=== PATIENT | male | born 1970 | race Caucasian/White ===

== ENCOUNTER 2018-10-23 16:10 | Emergency (ER) | payer MEDICAID, OTHER ==
[~2018-10-23] VITALS: Ht 172.7 cm; Wt 70.0 kg
[2018-10-23 16:16] VITALS: Ht 172.7 cm; Wt 70.0 kg
[2018-10-23] MEDS ORDERED: KETOROLAC 15 MG INJ IV STA (19:14)
--- NOTE | 2018-10-23 19:54 | ERD ---
ER Documentation Chief Complaint Chief Complaint URQ AP (worse after eating) X 5 days, dysuria X 2 days, HPI Very pleasant 48-year-old gentleman presents with postprandial right upper quadrant abdominal discomfort for the past 5 days. No fevers chills chest pain or shortness of breath no exertional symptoms no nausea vomiting or diarrhea. Prior colonoscopy 6 years ago was normal. He does have family history of colon cancer and is concerned about this. ROS All systems reviewed and are negative except as per history of present illness. Medications Home Meds Active Scripts Famotidine* (Pepcid*) 20 Mg Tablet, 20 MG PO BID for 14 Days, TAB Prov:SOFIE DOZIER MD 10/23/18 Allergies Allergies: Coded Allergies: No Known Allergy (Unverified , 02/16/13) PMhx/Soc Medical and Surgical Hx: pt denies Medical Hx History of Surgery: Yes (nose) Anesthesia Reaction: No Hx Neurological Disorder: No Hx Respiratory Disorders: No Hx Cardiac Disorders: No Hx Psychiatric Problems: No Hx Miscellaneous Medical Probl: No Hx Alcohol Use: Yes (socially) Hx Tobacco Use: No Smoking Status: Never smoker FmHx Family History: No diabetes Physical Exam Vitals Vital Signs Date Temp Pulse Resp B/P (MAP) Pulse Ox O2 O2 Flow FiO2 Time Delivery Rate 10/23/18 98.7 83 18 146/91 98 16:16 (109) Physical Exam General: Well developed, well nourished, no acute distress Head: Normocephalic, atraumatic. Eyes: Pupils equally reactive, EOM intact ENT: Moist mucous membranes Neck: Supple, no lymphadenopathy Respiratory: Lungs clear bilaterally, no distress Cardiovascular: RRR, no murmurs, rubs, or gallops Abdominal: Soft, very mild discomfort in the right upper quadrant but negative Walters sign, no tenderness to McBurney's point : Deferred MSK: No edema, no unilateral swelling, 5/5 strength Neurologic: Alert and oriented, moving all extremities, normal speech, no focal weakness, no cerebellar signs Skin: No rash Psych: Normal mood Result Diagram: 10/23/18192410/23/181924 Results 24 hrs Laboratory Tests Test 10/23/18 19:25 White Blood Count 6.3 10^3/ul Red Blood Count 5.02 10^6/ul Hemoglobin 14.7 g/dl Hematocrit 43.4 % Mean Corpuscular Volume 86.5 fl Mean Corpuscular Hemoglobin 29.3 pg Mean Corpuscular Hemoglobin Concent 33.9 g/dl Red Cell Distribution Width 12.4 % Platelet Count 211 10^3/UL Mean Platelet Volume 9.7 fl Immature Granulocytes % 0.200 % Neutrophils % 53.6 % Lymphocytes % 31.0 % Monocytes % 10.6 % Eosinophils % 3.5 % Basophils % 1.1 % Nucleated Red Blood Cells % 0.0 /100WBC Immature Granulocytes # 0.010 10^3/ul Neutrophils # 3.4 10^3/ul Lymphocytes # 2.0 10^3/ul Monocytes # 0.7 10^3/ul Eosinophils # 0.2 10^3/ul Basophils # 0.1 10^3/ul Nucleated Red Blood Cells # 0.0 10^3/ul Sodium Level 142 mmol/L Potassium Level 3.9 mmol/L Chloride Level 103 mmol/L Carbon Dioxide Level 27 mmol/L Anion Gap 12 Blood Urea Nitrogen 12 mg/dl Creatinine 0.83 mg/dl Est Glomerular Filtrat Rate mL/min > 60 mL/min Glucose Level 92 mg/dl Calcium Level 9.7 mg/dl Total Bilirubin 0.4 mg/dl Direct Bilirubin 0.00 mg/dl Indirect Bilirubin 0.4 mg/dl Aspartate Amino Transf (AST/SGOT) 29 IU/L Alanine Aminotransferase (ALT/SGPT) 26 IU/L Alkaline Phosphatase 42 IU/L Total Protein 7.9 g/dl Albumin 4.6 g/dl Globulin 3.30 g/dl Albumin/Globulin Ratio 1.39 Lipase 93 U/L Current Medications Medications Dose Sig/Barbie Start Time Status Last (Trade) Ordered Route PRN Stop Time Admin Dose Reason Admin Ketorolac 15 mg ONCE STAT 10/23/18 DC 10/23/18 Tromethamine IV 19:14 19:26 (Toradol) 10/23/18 19:15 Procedures/MDM EKG, MONITORS, & DIAGNOSTIC IMAGING: Gallbladder ultrasound: No acute process per radiologist read LAB INTERPRETATION: I reviewed the laboratory testing and it shows [no evidence of acute process] MEDICAL DECISION MAKING: Postprandial right upper quadrant abdominal pain raised the concern for possible gastric process such as gastritis, dyspepsia, peptic ulcer disease versus biliary colic. Low concern for acute cholecystitis. No evidence of acute appendicitis or alternative acute intra-abdominal process. He is to follow-up with a GI specialist for likely endoscopy and possibly repeat colonoscopy given family history but no indication at this time for CT imaging of the abdomen and pelvis. ER COURSE: * NSAID provided. * Laboratory testing and diagnostic imaging are unrevealing. Symptoms improved with nonsteroidal anti-inflammatory. Likely gastric process. Initiation of H2 simin would be appropriate with outpatient GI follow-up. No signs or symptoms again concerning for cardiac etiology. CONSULTATION: [None] DISPOSITION PLAN: The patient does not have an identifiable emergent medical condition that warrants inpatient hospitalization at this time. The patient is deemed safe for discharge with outpatient follow-up. We discussed follow up with the patient's primary care doctor within 24 to 48 ho urs as needed. We also discussed return to the emergency room for worsening symptoms or worsening condition. Outpatient referral: Gastroenterology Discharge Medications: Pepcid Departure Diagnosis: Primary Impression: RUQ abdominal pain Condition: Stable SOFIE DOZIER MD Oct 23, 2018 19:54
[2018-10-23] MEDS ORDERED: FAMO-96 PO (20:43)
[2018-10-23 20:55] VITALS: BP 132/90; PULSE 52; RESP 16
== END 2018-10-23 20:57 | disposition home or self-care (01) ==
LOC: E/R 16:10
DX: R10.11 Right upper quadrant pain (principal)
CPT/HCPCS: 36415; 76705; 80053; 83690; 85025; 96374; J1885; Z7502